=== PATIENT | female | born 1965 | race Caucasian/White ===

== ENCOUNTER → 2017-07-03 | Outpatient (CLI) | payer OTHER | LOC: FIMAGING 11:50 | PROVIDERS: ATTEND Nurse Practitioner | DX: Z13.820 Encounter for screening for osteoporosis (principal); M85.80 Other specified disorders of bone density and structure, unspecified site; C50.919 Malignant neoplasm of unspecified site of unspecified female breast; Z78.0 Asymptomatic menopausal state ==

== ENCOUNTER → 2018-10-15 | Outpatient (CLI) | payer OTHER | LOC: CIMAGING 15:08 | PROVIDERS: ATTEND Nurse Practitioner Adult Health | DX: R22.9 Localized swelling, mass and lump, unspecified (principal) | CPT/HCPCS: 76882-PO ==

== ENCOUNTER 2018-11-02 13:01 | Day surgery (SDC) | payer OTHER ==
[2018-11-02] MEDS ORDERED: MIDAZOLAM 2 MG/2 ML VIAL IVP ONE (13:05)
[2018-11-02] MEDS ORDERED: NS 500 ML IV ONE (13:05)
[2018-11-02] MEDS ORDERED: BENZOCAINE UNIT DOSE SPRAY HURRICAINE MM ONE (13:05)
[2018-11-02] MEDS ORDERED: fentaNYL 100 MCG/2 ML INJ IVP ONE (13:05)
[2018-11-02] MEDS ORDERED: PROPOFOL/EMULSION 500 MG/50 ML BOTTLE IV ONE (13:43)
[2018-11-02] MEDS ORDERED: NALOXONE HCL 0.4 MG/ML INJ IVP PRN ×2 (13:45→14:41)
[2018-11-02] MEDS ORDERED: ONDANSETRON 4 MG/2 ML VIAL IVP PRN (13:45)
--- NOTE | 2018-11-02 13:45 | PDANEPAE ---
ANE Past Medical History - Pulmonary History Hx Sleep Apnea: No - Endocrine History Hx Diabetes: No ANE Review of Systems Review of Systems: ANE Patient History - Allergies Allergies/Adverse Reactions: meperidine HCl [From Demerol] Allergy (Verified 01/08/15 09:28) oxycodone HCl [From OxyContin] Allergy (Verified 01/08/15 09:28) - Home Medications Home Medications: Tamoxifen Citrate 01/08/15 [Last Taken Unknown] - Smoking Hx Smoking Status: Never smoked ANE Labs/Vital Signs - Vital Signs Height: 175.26 cm Weight: 74.389 kg ANE Physical Exam - Airway Neck exam: FROM Mallampati Score: Class 1 Mouth exam: normal dental/mouth exam - Pulmonary Pulmonary: no respiratory distress - Cardiovascular Cardiovascular: regular rate and rhythym - ASA Status ASA Status: I ANE Anesthesia Plan Total IV Anesthesia: Yes
--- NOTE | 2018-11-02 13:48 | PDGENHP ---
History & Physical Chief Complaint: Aortic regurgitation History of Present Illness: 53-year-old female found to have progressive aortic regurgitation on serial transthoracic echocardiogram. Need to further evaluate valvular pathology with FLORINDA. Cardiorespiratory Assessment: Stable for sedation. Sedation will be provided by the anesthesia service.
[2018-11-02] MEDS ORDERED: ALBUTEROL 3 ML DEYVIAL IH PRN (14:41)
--- NOTE | 2018-11-02 14:42 | POSTANESTH ---
Post Anesthetic Evaluation Cardiovascular Status: Similar to Pre-Op Cond Respiratory Status: Similar to Pre-op Cond. Level of Consciousness/Mental Status: Alert and Oriented Pain Control: Adequate, Prn Tx Ordered Nausea/Vomiting Control: Adequate, Prn Tx Ordered Complications Possibly Related to Anesthesia: None Noted
--- NOTE | 2018-11-02 15:24 | POSTANESTH ---
Post Anesthetic Evaluation Cardiovascular Status: Similar to Pre-Op Cond Respiratory Status: Similar to Pre-op Cond. Level of Consciousness/Mental Status: Mildly Sleepy, Arousable Pain Control: Adequate, Prn Tx Ordered Nausea/Vomiting Control: Adequate, Prn Tx Ordered Complications Possibly Related to Anesthesia: None Noted
--- NOTE | 2018-11-02 16:51 | ECHO ---
[email or web address] [address] [address] Main: [phone] Fax: Transesophageal Echocardiography Name: LUKAS DUVAL MR#: [id number] Study Date: 11/02/2018 Study Time: 01:42 PM Date of : 1965 Age: 53 year(s) Height: ( ) Weight: ( ) BSA: Gender: Female Examination: FLORINDA Indication: Eval Ao Image Quality: Contrast: Requested by: Lala Oneil Heart Rate: Rhythm: BP: / Procedure Staff [employer]: Regis Agustin RDCS Reading Physician: Lala Oneil MD Requesting Provider: FLORINDA Exam Details Conclusions: Normal size left ventricle. Normal global systolic LV function. EF is 70 %. The ejection fraction, measured in 2D mode, is 70 %. No regional wall motion abnormality. An agitated saline study was performed and was negative for intracardiac shunting. No thrombus in left appendage. Mild mitral valve regurgitation is present. Most likely functional bicuspid valve with a raphe. Leaflets appear domed in systole. There is moderate to severe aortic regurgitation. The AI jet is eccentric and is directed towards the anterior mitral valve. The AI vena contracta is .5 cm . Mild tricuspid regurgitation is present. Measurements: Chambers Valvular Assessment AV/MV Valvular Assessment TV/PV Normal Normal Normal Name Value Range Name Value Range Name Value Range IVSd (2D): 0.7 cm (0.6 cm-1.1 AR (PHT): 504 ms ( - ) TR Vmax: 1.81 mm/s ( - ) cm) TR PGmax: 13 mmHg ( - ) LVDd (2D): 5.1 cm (3.9 cm-5.3 syst. PAP: 18 mmHg ( - ) cm) LVDs (2D): 3.1 cm (2.1 cm-4 cm) LVPWd (2D): 0.9 cm ( - ) LVEF (2D): 70 (>=54 %) Patient: LUKAS DUVAL Study Date: 11/02/2018 Page 1 of 2 01:42 PM Additional Measurements: Valvular Assessment AV/MV Valvular Assessment TV/PV Name Value Name Value AR Vmax: 4.23 cm/s CVP (est.): 5 mmHg Findings: Left Ventricle: Normal size left ventricle. No LV hypertrophy. Normal global systolic LV function. EF is 70 %. The ejection fraction, measured in 2D mode, is 70 %. No regional wall motion abnormality. Left Atrium: The left atrium is normal in size. An agitated saline study was performed and was negative for intracardiac shunting. Left Atrial Appendage: Good color flow doppler in the left atrial appendage. No thrombus in left appendage. Right Atrium: The right atrium is normal in size. Mitral Valve: The mitral valve is normal in appearance. Mild mitral valve regurgitation is present. Aortic Valve: Most likely functional bicuspid valve with a raphe. Leaflets appear domed in systole. There is moderate to severe aortic regurgitation. The AI jet is eccentric and is directed towards the anterior mitral valve. The AI vena contracta is .5 cm . Tricuspid Valve: Mild tricuspid regurgitation is present. Pulmonic Valve: The pulmonic valve is normal in appearance and function. Aorta: The aorta is normal. Pericardium: No pericardial effusion. l1n (No Signature Object) Patient: LUKAS DUVAL Study Date: 11/02/2018 Page 2 of 2 01:42 PM [id number]
== END 2018-11-02 15:51 | disposition home or self-care (01) ==
LOC: FCATH 13:01
PROVIDERS: ATTEND Internal Medicine Cardiovascular Disease
PROC: B245ZZ4 Ultrasonography of Left Heart, Transesophageal (ICD-10-PCS; principal; 2018-11-02)
DX: I35.1 Nonrheumatic aortic (valve) insufficiency (principal); I36.1 Nonrheumatic tricuspid (valve) insufficiency; E03.9 Hypothyroidism, unspecified; Z85.3 Personal history of malignant neoplasm of breast; Z90.13 Acquired absence of bilateral breasts and nipples
CPT/HCPCS: J2704; J3010

== ENCOUNTER → 2018-12-07 | Outpatient (CLI) | payer OTHER | LOC: FIMAGING 12:46 | PROVIDERS: ATTEND Internal Medicine Hematology & Oncology | DX: N63.20 Unspecified lump in the left breast, unspecified quadrant (principal); Z85.3 Personal history of malignant neoplasm of breast ==

== ENCOUNTER → 2018-12-21 | Outpatient (CLI) | payer OTHER ==
[~2018-12-21] MED LIST: IOPAMIDOL (ISOVUE 370) 100 ML BTL IV ONE
== END ==
LOC: FIMAGING 07:42
PROVIDERS: ATTEND Internal Medicine Cardiovascular Disease
DX: I71.2 Thoracic aortic aneurysm, without rupture (principal); K76.89 Other specified diseases of liver
CPT/HCPCS: Q9967